=== PATIENT | male | born 1975 | race American Indian/Alaskan Native ===

== ENCOUNTER 2017-03-22 15:20 | Emergency (ER) | payer OTHER ==
[2017-03-22 15:25] VITALS: BP 149/84; PULSE 65; TEMP 98; BMI 27.6
[2017-03-22] MEDS ORDERED: KETOROLAC TROMETHAMINE 60 MG/2 ML VIAL IM ONE (16:27)
[2017-03-22] MEDS ORDERED: KETOROLAC TROMETHAMINE 60 MG/2 ML VIAL ONE (16:31)
--- NOTE | 2017-03-22 16:33 | PDOC ---
History of Present Illness - General Chief Complaint: Back Pain Stated Complaint: LOWER BACK PAIN Time Seen by Provider: 03/22/17 16:21 History Source: Patient Exam Limitations: No Limitations - History of Present Illness Initial Comments: 03/22/17 16:28 CC reoccuring lower back pain post weight lifting x 1 day ago Occurred: reports: yesterday Severity: reports: moderate Pain Location: reports: back Associated Symptoms (Fall): muscle spasms Past History - Past Medical History Allergies/Adverse Reactions: Allergies Allergy/AdvReac Type Severity Reaction Status Date / Time No Known Allergies Allergy Verified 03/22/17 15:22 Home Medications: Ambulatory Orders No Home Medications 0 dose .ROUTE UTDICT 07/28/13 Other medical history: back - Suicide/Smoking/Psychosocial Hx Smoking Status: No Smoking History: Never smoked Number of Cigarettes Smoked Daily: 0 Information on smoking cessation initiated: No Hx Alcohol Use: No Drug/Substance Use Hx: No Substance Use Type: None Review of Systems - Review of Systems Constitutional: No: Chills, Fever HEENTM: No: Symptoms Reported Respiratory: No: Symptoms reported Cardiac (ROS): No: Symptoms Reported ABD/GI: No: Symptoms Reported, Abdominal cramping : No: Testicular Pain Musculoskeletal: Yes: Back Pain Neurological: No: Numbness, Paresthesia, Weakness, Ataxia *Physical Exam - Vital Signs Last Vital Signs Temp Pulse Resp BP Pulse Ox 98.0 F 65 18 149/84 100 03/22/17 15:22 03/22/17 15:22 03/22/17 15:22 03/22/17 15:22 03/22/17 15:22 - Physical Exam General Appearance: Yes: Appropriately Dressed, Apparent Distress Neck: positive: Supple. negative: Tender, Rigid, Tender lateral, Tender midline Respiratory/Chest: positive: Lungs Clear Cardiovascular: positive: Regular Rhythm, Regular Rate, S1, S2 Rectal Exam: positive: deferred Musculoskeletal: positive: Other (no palp tendernes; paiarea L4-L5 with rotation and forward flexion) Medical Decision Making - Medical Decision Making 03/22/17 16:31 will treat with toradol and refer to Dr mills for further work up and Possible PT and imaging *DC/Admit/Observation/Transfer Diagnosis at time of Disposition: Low back pain Qualifiers: Chronicity: acute Back pain laterality: bilateral Sciatica presence: without sciatica Qualified Code(s): M54.5 - Low back pain; M54.5 - Low back pain - Discharge Dispostion Disposition: HOME Condition at time of disposition: Stable Admit: No - Referrals Referrals: Blaze Mills MD [Staff Physician] - - Patient Instructions Additional Instructions: please naprosyn 500mg 2 times daily; stay active, no gym; see Dr Mills next week
== END 2017-03-22 16:38 | disposition home or self-care (01) ==
LOC: JERFT 15:20
PROC: 3E0233Z Introduction of Anti-inflammatory into Muscle, Percutaneous Approach (ICD-10-PCS; principal; 2017-03-22)
DX: M54.5 Low back pain (principal); X50.9XXA Other and unspecified overexertion or strenuous movements or postures, initial encounter; Y93.B3 Activity, free weights; Y92.89 Other specified places as the place of occurrence of the external cause; Y99.8 Other external cause status
CPT/HCPCS: 99281-25

== ENCOUNTER 2017-12-20 19:04 | Emergency (ER) | payer OTHER ==
--- NOTE | 2017-12-20 19:26 | PDOC ---
Rapid Medical Evaluation Chief Complaint: Back Pain Time Seen by Provider: 12/20/17 19:23 Medical Evaluation: Allergies Allergy/AdvReac Type Severity Reaction Status Date / Time No Known Allergies Allergy Verified 03/22/17 15:22 12/20/17 19:25 I have performed a brief in-person evaluation of this patient. The patient presents with a chief complaint of: acute on chronic lower back pain Pertinent physical exam findings: no palpable muscle spasm. denies incontinence of b/b and saddle anesthesia I have ordered the following: nothing The patient will proceed to the ED for further evaluation. Discharge Disposition - Diagnosis Low back pain - Referrals - Patient Instructions - Post Discharge Activity
[2017-12-20 19:27] VITALS: BP 151/82; PULSE 72; TEMP 98.6; BMI 26.2
[2017-12-20] MEDS ORDERED: KETOROLAC TROMETHAMINE 60 MG/2 ML VIAL IM ONE (20:06)
--- NOTE | 2017-12-20 20:12 | PDOC ---
History of Present Illness - General Chief Complaint: Back Pain Stated Complaint: BACK PAIN Time Seen by Provider: 12/20/17 19:23 - History of Present Illness Initial Comments: 42-year-old male with history of lumbar spine pain presents for evaluation of lower back pain 2 days. He describes his pain as achy exacerbated with activity minimally relieved with rest and with radiation down the posterior lateral aspect of the left leg to the level of his foot. He denies saddle paresthesias or loss of bowel or bladder function. No fever chills or night sweats. 12/20/17 20:09 Past History - Past Medical History Allergies/Adverse Reactions: Allergies Allergy/AdvReac Type Severity Reaction Status Date / Time No Known Allergies Allergy Verified 12/20/17 19:24 Home Medications: Ambulatory Orders No Home Medications 0 dose .ROUTE UTDICT 07/28/13 Naproxen [Naprosyn -] 500 mg PO BID #20 tablet 03/22/17 Cyclobenzaprine HCl [Flexeril 10 mg] 10 mg PO HS PRN #10 tablet 12/20/17 Methylprednisolone [Medrol Dose Harish] 4 mg PO ASDIR #21 tablet 12/20/17 COPD: No - Suicide/Smoking/Psychosocial Hx Smoking Status: No Smoking History: Never smoked Have you smoked in the past 12 months: No Number of Cigarettes Smoked Daily: 0 Information on smoking cessation initiated: No Hx Alcohol Use: No Drug/Substance Use Hx: No Substance Use Type: None Review of Systems - Review of Systems Musculoskeletal: Yes: See HPI, Back Pain All Other Systems: Reviewed and Negative *Physical Exam - Vital Signs Last Vital Signs Temp Pulse Resp BP Pulse Ox 98.6 F 72 17 151/82 100 12/20/17 19:22 12/20/17 19:22 12/20/17 19:22 12/20/17 19:22 12/20/17 19:22 - Physical Exam Comments: Lumbar spine skin color and temperature are normal there is mild to moderate paralumbar musculature spasm. Decreased range of motion. 5 out of 5 strength in bilateral lower extremities without any gross sensorimotor deficits. Positive straight leg test on the left negative on the right. Thighs and calves are soft and nontender 12/20/17 20:09 Medical Decision Making - Medical Decision Making Lumbar radiculopathy I'll give him a shot of Toradol in the emergency room he states this helps him and send him home with a Medrol Dosepak and Flexeril with spine surgery follow-up 12/20/17 20:10 *DC/Admit/Observation/Transfer Diagnosis at time of Disposition: Low back pain, Lumbar radiculopathy, acute - Discharge Dispostion Disposition: HOME Condition at time of disposition: Stable Decision to Admit order: No - Prescriptions Prescriptions: Cyclobenzaprine HCl [Flexeril 10 mg] 10 mg PO HS PRN #10 tablet PRN Reason: Muscle Spasms Methylprednisolone [Medrol Dose Harish] 4 mg PO ASDIR #21 tablet - Referrals Referrals: Boo Marquez MD [Primary Care Provider] - Blaze Sen MD [Staff Physician] - - Patient Instructions Printed Discharge Instructions: Lumbar Radiculopathy, DI for Lumbar Radiculopathy Additional Instructions: Return to the emergency room should symptoms worsen or go unresolved. In the meantime take the medication as directed. Please do not take any other anti- inflammatories while your on the Medrol Dosepak. You cannot take Advil Motrin Aleve or ibuprofen. If you need something else in addition to the steroid pack he can take Tylenol. Also the muscle relaxer tablet will make you tired will be one tablet prior to bedtime. Follow-up with spine surgery in 2-3 days for further evaluation and treatment options. And again return to the emergency room should symptoms worsen or go unresolved. - Post Discharge Activity
[2017-12-20] MEDS ORDERED: KETOROLAC TROMETHAMINE 60 MG/2 ML VIAL ONE (20:16)
== END 2017-12-20 20:28 | disposition home or self-care (01) ==
LOC: JERFT 19:04
PROC: 3E0233Z Introduction of Anti-inflammatory into Muscle, Percutaneous Approach (ICD-10-PCS; principal; 2017-12-20)
DX: M54.16 Radiculopathy, lumbar region (principal); M62.830 Muscle spasm of back
CPT/HCPCS: 99281-25

== ENCOUNTER 2021-03-15 04:35 | Emergency (ER) | payer OTHER ==
[2021-03-15 04:42] VITALS: BP 150/89; PULSE 60; TEMP 98.2; BMI 26.2
[2021-03-15] MEDS ORDERED: KETOROLAC TROMETHAMINE 30 MG/1 ML VIAL IM ONE (04:46)
[2021-03-15] MEDS ORDERED: KETOROLAC TROMETHAMINE 30 MG/1 ML VIAL ONE (04:47)
== END 2021-03-15 05:23 | disposition home or self-care (01) ==
LOC: JER 04:35
PROC: 3E0233Z Introduction of Anti-inflammatory into Muscle, Percutaneous Approach (ICD-10-PCS; principal; 2021-03-15)
DX: M54.50 Low back pain, unspecified (principal)
CPT/HCPCS: 99284-25